=== PATIENT | male | born 1980 | race Caucasian/White ===

== ENCOUNTER 2017-03-09 13:45 | Day surgery (SDC) | payer OTHER ==
[2017-03-09] VITALS (14 sets, daily range): BP systolic 118–135; BP diastolic 68–84; PULSE 68–81; RESP 14–18; O2SAT 97–100
[~2017-03-09] VITALS: Ht 172.7 cm; Wt 72.6 kg
[~2017-03-09 13:45] MED LIST: BACI28.4 TP; CeFAZolin Inj 2 GM in IV Premix 1 EACH IV SCH; Lactated Ringer's 1,000 ML IV SCH; OLAN10TA19 PO; PROP20TA5 PO
[2017-03-09] MEDS ORDERED: Dexamethasone 4 mg/mL Inj ONE ×2 (13:46)
[2017-03-09] MEDS ORDERED: fentaNYL-PF 50 mCg/mL 2 mL Inj ONE (13:46)
[2017-03-09] MEDS ORDERED: Propofol 10,000 mCg/mL 20 mL Inj ONE ×2 (13:46)
[2017-03-09] MEDS ORDERED: MetoCLOpramide 5 mg/mL 2 mL Inj ONE ×2 (13:46)
[2017-03-09] MEDS ORDERED: Ondansetron 2 mg/mL 2 mL Inj ONE ×2 (13:46)
[2017-03-09] MEDS ORDERED: Lactated Ringer's 1,000 ML IV ONE (14:15)
[2017-03-09] MEDS ORDERED: HYDROcodone-APAP 7.5-325 mg Tablet PO PRN (15:40)
--- NOTE | 2017-03-09 15:53 | PCM.HPANE ---
Patient Data Date of Service: March 09, 2017 Surgeon Admitting Provider: Attending Provider:Jed Monge DO Primary Care Physician:Ashley Other Provider:Lakeshia Jacobo Anesthesia Reason for Visit Right Wrist Laceration With Nerve & Tendon Lacerat Ht/WT & BMI Height (Feet): 5 Height (Inches): 8 Weight (Kilograms): 72.6 Body Mass Index 24.00 Allergies Coded Allergies: No Known Allergies (Unverified , 03/09/17) Past Anesthesia History Anesthesia History: Denies:: Anesthesia Reactions, Fam Anesthesia Reaction, Fam Malignant Hypertherm, Malignant Hyperthermia Diabetes History Hx Diabetes?: No MRSA MRSA: No Medications Home Meds Incl Beta Chanel: Yes Date Beta Chanel Taken: March 09, 2017 Time Beta Chanel Taken: 1030 Reported Medications Olanzapine 10 Mg [id number] Mg PO BID Ref 0 PLEASE VERIFY DOSAGE 03/07/17 Propranolol HCl 20 Mg [id number] Mg PO TID 90 Days Ref 0 03/07/17 Bacitracin (Bacitracin Ointment)28.4 Gm Oint...g.1 Applic TP BID PRN ON WOUNDS # 1 TUBE Ref 0 03/07/17 Discontinued Reported Medications [Antidepressant] No Conflict Check 03/07/17 History History of ENT Problems?: No HEENT History: Denies:: Abnormal Airway Denture Type: None Teeth Condition: Within Normal Limits Hx of Heart Problems?: No Cardiovascular History: Denies:: Chest Pain Heart Murmur Hypertension Hx of Respiratory Problem?: No Respiratory History: Denies:: Use of C-PAP Machine Hx Neurologic Problems?: No Neurological History: Positive for:: Seizures (febrile) Denies:: CVA TIA Hx of GI Problems?: No Hx of Problems?: Yes Other Pertinent History: S/P URETER RECONSTRUCTION FOR CONGENITAL STRICTURE Male Hx: Denies:: Prostate Problems Scrotal Mass Testicular Surgery Skin History: Positive for:: History Skin Disorders? (HEALING B/L WRIST LACERATIONS) Denies:: Pressure Ulcers Hx Musculoskeletal Problems?: Yes Musculoskeletal History: Positive for:: Musculoskeletal Trauma (B/L WRIST LACERATIONS RT WRIST NERVE & TENDON DYSFUNCTION=CURRENT PROBLEM) Hx of Psycho/Social Problems?: Yes Psycho Social History: Positive for:: Anxiety (Rx'd w/ lorazepam) Suicide Attempt (WRIST LACERATIONS-STATES HE IS NOIT SUICIDAL @ THIS TIME/ON ANTI-DEPRESSANT) Hx Surgeries?: Yes (URETER RECONSTRUCTION FOR CONGENITAL STRICTURE) Hx Any Other Health Problems?: Yes Other History: Denies:: Cancer Endocrine Disease Hospitalization Thyroid Disease Hx Diabetes: No Hx Alcohol Use: NoHx Substance Use: No Smoking Status: Never Smoker Have You Smoked inLast 12 mo: No Stop/Bang Treated for Sleep Apnea?: No Do You Have a CPAP Machine?: No S-Snoring: Do You Snore Loudly: No T-Tired: feel tired, fatigued: No O-Obsered: Observed not breath: No P-Blood Pressure: treated: No B- Body Mass Index > 35 kg/m2: No A- Age over 50: No N- Neck Large Circumference: No G- Gender Male: Yes ENA Total Score: 1 ENA Risk Assessment: Low Risk, <3 Yes Risk Assessment Category Category 1A: Patient has history of documented sleep apnea, and HAS NOT received any narcotic, sedative or anesthesia administration during this stay. Category 1B: Patient has history of documented sleep apnea, and HAS received any narcotic , sedative or anesthesia administration during this stay Category 2: Patient has SUSPECTED Obstructive Sleep Apnea, and HAS received any narcotic , sedative or anesthesia administration during this stay. Category 3: Patient has SUSPECTED Obstructive Sleep Apnea and HAS NOT received narcotic, sedative or anesthesia administration during this stay. Category 4: Outpatient in Procedural Areas with known sleep apnea or who screen positive for High Risk via the STOP/BANG questionnaire. Exam Exam Vital Signs Vital Signs Date Time Temp Pulse Resp B/P Pulse Ox O2 Delivery O2 Flow Rate FiO2 03/09/17 14:15 36.3 81 16 129/76 97 Room Air General Appearance: Alert, Oriented X3, Cooperative, No Acute Distress HEENT/AIRWAY: MP 2, Neck Movement (FROM), Mouth Opening (3), Other (TMD<3, SIGNIFICANT >1.5CM OVERBITE) Lungs: Normal Air Movement Heart: Exam Unremarkable, Regular Rate/Rhythm, Normal S1, Normal S2, No Murmurs /Rubs/Gallops Meds/Labs/Diagnostics Admission Meds Current Medications Lactated Ringer's (Lr) 1,000 ml @ ud STK-MED ONCE IV Last administered on 03/09t 14:15; Start 03/09/17 at 14:15; Stop 03/09/17 at 14:42; Status DC Plan Impression Patient chart reviewed, patient interviewed and anesthestic plan with risks, benefits, and alternatives discussed, and informed consent obtained. ASA Physical Status: ASA1 Normal Healthy Anesthetic Plan: GA Bene/Risks/Altern/Consents: Yes HP Complete Prior to Induction: Yes Margarito Mckay MD March 09, 2017 15:53
[2017-03-09] MEDS ORDERED: Bupivacaine-MPF 0.25% 30 mL Inj INFILTRATE ONE (16:26)
[2017-03-09] MEDS ORDERED: Lactated Ringer's 500 ML IV PRN (17:01)
[2017-03-09] MEDS ORDERED: Lactated Ringer's 1,000 ML IV SCH (17:01)
[2017-03-09] MEDS ORDERED: MetoCLOpramide 5 mg/mL 2 mL Inj IVPUSH PRN (17:05)
[2017-03-09] MEDS ORDERED: EPHEDrine Sulfate 50 mg/mL Inj IVPUSH PRN (17:05)
[2017-03-09] MEDS ORDERED: Dexamethasone 4 mg/mL Inj IVPUSH PRN (17:05)
[2017-03-09] MEDS ORDERED: Ondansetron 2 mg/mL 2 mL Inj IVPUSH PRN (17:05)
[2017-03-09] MEDS ORDERED: Phenylephrine 10,000 mCg/mL Inj IVPUSH PRN (17:05)
[2017-03-09] MEDS ORDERED: HYDROmorphone 1 mg/mL Inj IVPUSH PRN (17:05)
[2017-03-09] MEDS: fentaNYL-PF 50 mCg/mL 2 mL Inj IVPUSH PRN ×2 (18:08→18:18)
--- NOTE | 2017-03-10 08:18 | OP ---
[address] [address] OPERATIVE REPORT PATIENT: LILIA MARY : 1980 MR#: [id number] ADMIT: 03/09/2017 JOB ID: [id number] DATE OF SURGERY: 03/09/2017 PREOPERATIVE DIAGNOSIS(ES): Right wrist laceration, with laceration of the median nerve. POSTOPERATIVE DIAGNOSIS(ES): 1. Right wrist laceration, with partial median nerve laceration encompassing 50% of the volar surface. 2. Right wrist partial laceration of flexor digitorum superficialis to the middle finger encompassing 70% of the tendon. SURGERIES AND PROCEDURES: 1. Right wrist direct suture of the median nerve at the forearm. 2. Right carpal tunnel release. 3. Right forearm repair of flexor digitorum superficialis to the middle finger. SURGEON: Jed Monge DO. ANESTHESIA: General. HISTORY: The patient is a 36-year-old male that sustained self-inflicted lacerations to his bilateral forearms. His left hand and forearm lacerations were superficial and did not demonstrate any deficits neurologically or with tendon function, and were provisionally irrigated and closed in the emergency department. The right hand was also provisionally irrigated and closed with deficits in the median nerve distribution. Hand function including tendon function appeared intact, although did demonstrate some weakness. I discussed with the patient the risks, benefits and indications to proceed with a right wrist and forearm exploration with a possible nerve and tendon repair. He understood the risks included, but not limited to, neurovascular injury, tendon injury, infection, failure to resolve the patient's preoperative symptoms, stiffness and persistent pain, all of which may require further intervention. The patient had all questions answered. Consent was signed and placed in the chart. PROCEDURE IN DETAIL: The patient was brought to the operating suite and placed supine on the operating table. Surgical time-out was performed. Everyone in the room was in agreement. After appropriate anesthesia was obtained, a right upper arm tourniquet was applied. The right upper extremity prepped and draped in a sterile fashion. The right upper extremity was then exsanguinated, and tourniquet inflated to 250 mmHg. The patient's sutures were removed and the cruciate laceration was opened up. The skin flaps were then raised revealing underneath an intact flexor carpi radialis and flexor carpi ulnaris. Central to this was a laceration of the flexor digitorum superficialis of the middle finger encompassing about 80% of the tendon. The median nerve was identified and freed up from the surrounding soft tissues. There was significant scar tissue. A neurolysis was performed, and a partial laceration of the median nerve was identified encompassing about 50% of the volar segment of the median nerve. The median nerve laceration was distal to the branching of palmar cutaneous nerve. The underlying flexor tendons were all explored and found to be intact within the zone of injury. Copious irrigation was then performed. Decision was then made for repair of the median nerve. The median nerve was repaired with 8-0 nylon in a simple interrupted fashion, followed by wrapping of the coaptation site with an [employer] nerve protector. This was also sutured with 8-0 nylon. Attention was then turned towards the flexor digitorum superficialis to the middle finger. A 4-0 FiberLoop was used to perform a 4-strand core suture repair of the partial laceration of flexor digitorum superficialis to the middle finger. This was further reinforced with a 6-0 nylon in a cross stitch fashion for epitendinous suture. Due to the repair of the median nerve, a carpal tunnel release was also performed. The patient's incision carried down through the interval for the carpal tunnel. The palmar fascia was identified and was intact and incised longitudinally in line with the skin incision, followed by exposure of the transverse carpal ligament. The transverse carpal ligament was then released in its entirety. The previous exposure already exposed and released the distal forearm fascia. Copious irrigation was then performed, followed by closure of the skin with 4-0 nylon in an interrupted, as well as a running, fashion. The patient was then placed into a well-padded, well-molded dorsal blocking splint. ESTIMATED BLOOD LOSS: 5 cc. COMPLICATIONS: None. DISPOSITION: The patient tolerated the procedure well. Anesthesia was reversed. The patient was transferred to PACU for recovery. POSTOPERATIVE PLAN: The patient will follow up with outpatient therapy next week and have a dorsal blocking splint fashioned and start working on range of motion to the fingers. We will have them protected in that brace for approximately 4-5 weeks secondary to the repair of the flexor digitorum superficialis.
== END 2017-03-09 23:59 | disposition home or self-care (01) ==
LOC: SAS 13:45
PROVIDERS: ATTEND Orthopaedic Surgery
DX: S64.11XA Injury of median nerve at wrist and hand level of right arm, initial encounter (principal); S54.11XA Injury of median nerve at forearm level, right arm, initial encounter; X83.8XXA Intentional self-harm by other specified means, initial encounter; Y93.9 Activity, unspecified; Y92.9 Unspecified place or not applicable; G56.01 Carpal tunnel syndrome, right upper limb; Z87.891 Personal history of nicotine dependence
CPT/HCPCS: 25260; 64856; C1713; J0690; J1100; J2250; J2405; J2765; J3010; J7120